=== PATIENT | female | born 1985 | race Two or more races ===

== ENCOUNTER 2023-10-19 15:38 | Emergency (ER) | payer OTHER ==
[~2023-10-19] VITALS: Ht 162.6 cm; Wt 69.9 kg
[2023-10-19] MEDS ORDERED: PEPCID AC20 MG (15:56)
[2023-10-19] MEDS ORDERED: PRENA1 TRUE CO1 EACH PO (15:56)
[2023-10-19 16:56] LABS: HEMOGLOBIN 12.2 g/dL (12.0-15.00); MEAN CELL VOLUME 92.1 fL (80.00-100.00); MEAN CORPUSCULAR HGB CONC 34.7 g/dl (32.0-36.0); PLATELET COUNT 233 K/uL (150-450); RED BLOOD COUNT 3.81 M/uL (4.00-6.00); RED CELL DISTRIBUTION WIDTH 13.3 % (11.5-14.5)
[2023-10-19 17:50] LABS: CREATININE SERUM 0.49 mg/dL (0.55-1.02); GFR 141.34; POTASSIUM 4.7 mEq/L (3.5-5.1)
[2023-10-19 17:52] LABS: PH,URINE 6.5 (5.0-8.0); URINE APPEARANCE Cloudy; URINE BILIRRUBIN Negative (NEGATIVE); URINE BLOOD Large; URINE COLOR Orange; URINE GLUCOSE Negative (NEGATIVE); URINE LEUKOCYTE Small; URINE NITRATE Negative; URINE PROTEIN 30 (NEGATIVE); URINE UROBILINOGEN 0.2 E.U./dl
[2023-10-19 17:56] LABS: URINE EPITHELIAL CELLS 9.2 uL (0.0-38.8); URINE RBC 6902.2 uL (0.0-20.8); URINE WBC 28.1 uL (0.0-23.2)
== END 2023-10-19 18:58 | disposition home or self-care (01) ==
LOC: ER 15:39
PROVIDERS: Emergency Medicine
DX: O20.9 Hemorrhage in early pregnancy, unspecified (principal); Z3A.11 11 weeks gestation of pregnancy

== ENCOUNTER 2023-10-21 20:43 | Emergency (ER) | payer OTHER ==
[~2023-10-21] VITALS: Ht 162.6 cm; Wt 69.9 kg
[~2023-10-21 20:43] MED LIST: PEPCID AC20 MG; PRENA1 TRUE CO1 EACH PO
[2023-10-21] MEDS ORDERED: RINGERS SOLUTION,LACTATED 1,000 ML IV STA (21:28)
[2023-10-21 21:59] LABS: HEMATOCRIT 36.9 % (36.0-45.00); HEMOGLOBIN 12.7 g/dL (12.0-15.00); MEAN CELL VOLUME 92.4 fL (80.00-100.00); MEAN CORPUSCULAR HEMOGLOBIN 31.8 pg (27.00-32.0); MEAN CORPUSCULAR HGB CONC 34.5 g/dl (32.0-36.0); PLATELET COUNT 225 K/uL (150-450); RED CELL DISTRIBUTION WIDTH 13.6 % (11.5-14.5)
[2023-10-21 22:20] LABS: INR 0.96; PARTIAL THROMBOPLASTIN TIME 26.5 SECONDS (22.0-34.0); PROTHROMBIN TIME 10.1 SECONDS (9.0-11.5)
[2023-10-21 22:51] LABS: CALCIUM 9.3 mg/dL (8.5-10.1); CREATININE SERUM 0.6 mg/dL (0.55-1.02); GFR 111.88; POTASSIUM 4.24 mEq/L (3.5-5.1)
== END 2023-10-22 09:44 | disposition home or self-care (01) ==
LOC: ER 20:44
DX: O20.9 Hemorrhage in early pregnancy, unspecified (principal); O34.81 Maternal care for other abnormalities of pelvic organs, first trimester; N83.201 Unspecified ovarian cyst, right side; Z3A.12 12 weeks gestation of pregnancy

== ENCOUNTER 2023-11-09 11:12 | Inpatient (IN) | payer OTHER ==
[~2023-11-09] VITALS: Ht 162.6 cm; Wt 70.8 kg
--- NOTE | 2023-11-09 12:10 | NUR ---
PACIENTE ALERTA Y ORIENTADA X3 CON ORDENES DE ADMISION DE DR. FAUSTIN.
[2023-11-09] MEDS ORDERED: RINGERS SOLUTION,LACTATED 1,000 ML IV SCH (12:30)
[2023-11-09 12:54] LABS: HEMATOCRIT 34.1 % (36.0-45.00); HEMOGLOBIN 11.7 g/dL (12.0-15.00); MEAN CELL VOLUME 91.6 fL (80.00-100.00); MEAN CORPUSCULAR HEMOGLOBIN 31.4 pg (27.00-32.0); MEAN CORPUSCULAR HGB CONC 34.2 g/dl (32.0-36.0); PLATELET COUNT 267 K/uL (150-450); RED BLOOD COUNT 3.72 M/uL (4.00-6.00); RED CELL DISTRIBUTION WIDTH 13.2 % (11.5-14.5)
[2023-11-09] MEDS ORDERED: CEFOXITIN SODIUM 2,000 MG VIAL IV SCH (13:00)
[2023-11-09 13:13] LABS: INR 0.95; PARTIAL THROMBOPLASTIN TIME 29.2 SECONDS (22.0-34.0); PROTHROMBIN TIME 10.4 SECONDS (9.0-11.5)
[2023-11-09 13:17] LABS: ALBUMIN 2.9 gm/dL (3.4-5.0); BILIRUBIN TOTAL 0.2 mg/dL (0.3-1.2); CALCIUM 9.4 mg/dL (8.5-10.1); CREATININE SERUM 0.43 mg/dL (0.55-1.02); GFR 163.47; GLOBULINA 4.2 G/DL (2.4-3.5); POTASSIUM 3.67 mEq/L (3.5-5.1); TOTAL PROTEIN 7.1 gm/dL (6.4-8.2)
[2023-11-09] MEDS ORDERED: ACETAMINOPHEN 500 MG GEL..CAP PO SCH (18:00)
[2023-11-10] MEDS ORDERED: OxyCODONE HCL/APAP UD (PERCOCET) PO ONE (18:45)
[2023-11-11] MEDS ORDERED: hydrOXYzine PAMOATE 50 MG CAPSULE PO ONE ×2 (20:15→20:21)
[2023-11-12] MEDS ORDERED: MISOPROSTOL 100 MCG TABLET VAG NR (08:15)
[2023-11-12] MEDS ORDERED: MISOPROSTOL 100 MCG TABLET PO NR (08:15)
[2023-11-12] MEDS ORDERED: MISOPROSTOL 100 MCG TABLET ONE (08:32)
[2023-11-12] MEDS ORDERED: MISOPROSTOL 100 MCG TABLET VAG STA (12:38)
[2023-11-12] MEDS ORDERED: MISOPROSTOL 100 MCG TABLET PO ONE (12:45)
[2023-11-12] MEDS ORDERED: MORPHINE SULFATE 4 MG/ML VIAL IV SCH (13:00)
[2023-11-12] MEDS ORDERED: OXYTOCIN 10 UNITS/ML VIAL ONE (13:04)
[2023-11-12] MEDS ORDERED: OxyCODONE HCL/APAP UD (PERCOCET) PO PRN (13:15)
[2023-11-12] MEDS ORDERED: IBUprofen 400 MG TABLET PO PRN (13:15)
[2023-11-12] MEDS ORDERED: OXYTOCIN 1,000 ML IV SCH (13:15)
[2023-11-12] MEDS ORDERED: OXYTOCIN 20 UNITS/1000ML RL PIGGYBAG IV ONE (14:38)
[2023-11-12] MEDS ORDERED: hydrOXYzine PAMOATE 50 MG CAPSULE PO ONE ×2 (22:30→22:56)
[2023-11-13] MEDS ORDERED: OxyCODONE HCL/APAP UD (PERCOCET) PO PRN (08:02)
[2023-11-13] MEDS ORDERED: KETOROLAC TROMETHAMINE 10 MG TABLET PO SCH (08:02)
[2023-11-13] MEDS ORDERED: hydrOXYzine PAMOATE 50 MG CAPSULE PO SCH (21:15)
== END 2023-11-14 10:23 | disposition home or self-care (01) | DRG 807 ==
LOC: ER 11:14 → SEC-K 12:34 → OB/GYN 12:34
PROVIDERS: ADMIT Obstetrics & Gynecology Maternal & Fetal Medicine; ATTEND Obstetrics & Gynecology Maternal & Fetal Medicine
PROC: 4A1HXCZ Monitoring of Products of Conception, Cardiac Rate, External Approach (ICD-10-PCS; 2023-11-09)
PROC: BY4CZZZ Ultrasonography of Second Trimester, Single Fetus (ICD-10-PCS; 2023-11-10)
PROC: 10E0XZZ Delivery of Products of Conception, External Approach (ICD-10-PCS; principal; 2023-11-12)
PROC: 3E033VJ Introduction of Other Hormone into Peripheral Vein, Percutaneous Approach (ICD-10-PCS; 2023-11-12)
PROC: 3E0P7VZ Introduction of Hormone into Female Reproductive, Via Natural or Artificial Opening (ICD-10-PCS; 2023-11-12)
PROC: 3E0DXGC Introduction of Other Therapeutic Substance into Mouth and Pharynx, External Approach (ICD-10-PCS; 2023-11-12)
PROC: BW4GZZZ Ultrasonography of Pelvic Region (ICD-10-PCS; 2023-11-13)
DX: O41.1220 Chorioamnionitis, second trimester, not applicable or unspecified (principal); O41.1420 Placentitis, second trimester, not applicable or unspecified; Z37.1 Single stillbirth; Z3A.14 14 weeks gestation of pregnancy; Z20.822 Contact with and (suspected) exposure to COVID-19